=== PATIENT | female | born 1955 | race Asian ===

== ENCOUNTER 2016-10-27 12:35 | Day surgery (SDC) | payer BC ==
[~2016-10-27] VITALS: Ht 144.8 cm; Wt 38.8 kg
[2016-10-27] MEDS ORDERED: GLUCOSAMINE (13:18)
[2016-10-27] MEDS ORDERED: CENTRUM (13:18)
[2016-10-27] MEDS ORDERED: CALCIUM (13:18)
[2016-10-27 13:23] VITALS: Ht 144.8 cm; Wt 38.8 kg
[2016-10-27 16:00] VITALS: BP 154/85; PULSE 80; RESP 20
[2016-10-27] MEDS ORDERED: PROPOFOL 20 ML ONE (16:33)
--- NOTE | 2016-10-27 17:38 | OPPN ---
Date/Time of Note Date/Time of Note DATE: 10/27/16 TIME: 17:32 Proc Note GI Free Text/Dictation Procedure Date: 10/27/2016 Preoperative Diagnosis: Colorectal cancer screening Postoperative Diagnosis: * 14 mm sessile polyp in the rectum approximately 10 cm from the anal verge. * Post saline assisted polypectomy * Post Endo Clip placement 3 for control of bruising and approximation of edges * Post epinephrine 1-10,000 submucosal injection * Post localization tattoo * Tortuous and redundant colon * Moderate-sized internal hemorrhoids Plan: * Review pathology as soon as available * Close observation for recurrence of bleeding or other complications * Repeat colonoscopy in 3-6 months pending review of pathology Procedure Performed: Colonoscopy Surgeon: Debbie Portillo MD Supply Chain Vice President: None Second Staffing Coordinator: None Anesthesia/Sedation MAC/by anesthesiologist Tourniquet Time: NA Estimated Blood Loss: 50 cc Transfusion Required: No Specimens: Rectal polyp Grafts/Implants: Endoclipped 3 Tubes/Drains: NA Complications: Slight oozing post polypectomy controlled with epinephrine injection plus endoclips Pt. Condition Post Procedure: Stable Disposition: Home After informed consent, with the patient/relatives understanding the procedure, its indications and potential risks and complications, including but not limited to: Allergic reaction, bleeding, perforation, infection, and after all pertinent questions were answered to the patient's satisfaction, the patient/ relatives signed the witnessed informed consent. Following this, premedication was administered slowly IV push under careful cardiovascular and respiratory monitoring with pulse [employer], automatic blood pressure, and jewelry technician. Once the sedative effect was achieved, the patient was placed in the left lateral decubitus position, digital rectal examination was performed. A colonoscope was then introduced and advanced under visual control throughout all segments of the colon including: [the rectum, sigmoid, descending colon, splenic flexure, transverse colon, hepatic flexure, ascending colon and finally reaching the cecum which was clearly identified by transillumination, finger indentation and the ileocecal valve.] Careful examination of the mucosa of the lower gastrointestinal tract both on insertion as well as withdrawal of the instrument disclosed the following findings: Preparation quality: [Adequate], Rectal Examination: The anorectal area was visualized examined and digital rectal examination performed with the following findings: Small external hemorrhoids. Otherwise no evidence of perirectal disease, no masses.] Colonic mucosa: The mucosa of all segments of the colon was carefully examined and showed the following findings: There is a 14 mm sessile polyp in the area of the rectum. The polyp was removed with saline assisted polypectomy, slightly oozing persisted after polypectomy which was controlled with Endo Clip 3 and epinephrine injection. Localization tattoo was applied. The colon is tortuous, fixated and redundant making it difficult but we reached the cecum. Otherwise the examined mucosa appears within normal limits. There is no evidence of inflammatory changes, diverticular formation, other neoplasms, vascular malformation, or any other abnormality.] The instrument was then withdrawn, the patient tolerated the procedure well and was transferred out of the Endoscopy Suite awake and in good condition to continue recovery under observation. Procedure date: Oct 27, 2016 DEBBIE PORTILLO MD Oct 27, 2016 17:37
[2016-10-27] MEDS ORDERED: EPINEPHrine 0.1 MG/ML SYG ONE (17:55)
[2016-10-27 17:58] VITALS: BP 141/72; RESP 16
== END 2016-10-27 19:42 | disposition home or self-care (01) ==
LOC: GIL 12:35
PROVIDERS: ATTEND Internal Medicine Gastroenterology
DX: Z12.11 Encounter for screening for malignant neoplasm of colon (principal); D12.8 Benign neoplasm of rectum; K64.8 Other hemorrhoids; R19.5 Other fecal abnormalities; K21.9 Gastro-esophageal reflux disease without esophagitis
CPT/HCPCS: 45381; 45390; 88305; J0171; Z7610